=== PATIENT | female | born 1960 | race Caucasian/White ===

== ENCOUNTER 2018-06-22 14:51 | Outpatient (CLI) | payer OTHER ==
--- NOTE | 2018-06-22 16:40 | MRI ---
MRI OF THE LUMBAR SPINE WITHOUT CONTRAST: 06/22/18 HISTORY: Leg weakness. Low back pain. Previous history of three ruptured discs. COMPARISON: None. TECHNIQUE: MRI of the lumbar spine is performed without intravenous gadolinium administration. Multisequential, multiplanar imaging is performed. FINDINGS: There is appropriate T1 narrow signal intensity of the lumbar vertebrae. Vertebral body height is ai ntained. No fracture. 2.3 mm of retrolisthesis of L2 upon L3. There is intrinsic T1 hyperintensity a nd T2 hyperintensity at L1 compatible with a small hemangioma. No significant STIR hyperintensity to suggest vertebral body edema or ligamentous injury. There is minimal type I Modic change at L2-3. T2 hyperintensities in the right kidney and right hepatic lobe likely representing cystic components. The conus medullaris terminates at the inferior aspect of L1. T12-L1: Small left paracentral disc bulge. No significant central canal stenosis. Patent bilateral ne ural foramina. L1-L2: Mild loss of disc space height. Minimal left and right paracentral disc bulges. No significant central canal stenosis. Mild bilateral neural foraminal narrowing. L2-L3: Desiccation with moderate loss of disc space height. Generalized disc bulge results in mild ce ntral canal stenosis. There is fluid in both facet joints. Moderate bilateral neural foraminal narrow ing. L3-L4: Mild loss of disc space height. No significant posterior disc abnormality. No significant cent ral canal stenosis. Mild bilateral foraminal narrowing. L4-L5: Adequate disc hydration. No significant central canal stenosis. There is bilateral facet hypertrophy with small amount of fluid in both facet joints. L5-S1: Mild bilateral foraminal narrowing at L5-S1. Adequate disc hydration. No significant central c anal stenosis. Neural foramina are patent. IMPRESSION: Degenerative changes lumbar spine as above. POS: [facility]
== END 2018-06-22 14:52 | disposition home or self-care (01) ==
LOC: TBSIIMAG 14:51
PROVIDERS: ATTEND Internal Medicine Rheumatology
DX: M47.896 Other spondylosis, lumbar region (principal)
CPT/HCPCS: 72148

== ENCOUNTER 2018-07-19 13:11 | Outpatient (CLI) | payer OTHER ==
[2018-07-19 15:15] LABS: Bilirubin Negative (Negative); Blood, Urine Negative (Negative); Clarity CLOUDY (Clear); Glucose, Urine (Dipstick) Negative (Negative); Leukocyte Trace (Negative); Nitrite Negative (Negative); Protein, Urine (Dipstick) Negative (Neg-Trace); Specific Gravity, Urine 1.023 (1.002-1.036); Urobilinogen 0.2 mg/dL (0.2-1.0)
[2018-07-19 15:19] LABS: Bacteria/HPF None Seen HPF (None Seen); Hyaline Casts/LPF 0-3 HYALINE CAST LPF (0-3 Hyaline); Pathc Cast-AUWi Flag 0.72 (0-2.49); RBC/HPF 0-3 HPF (0-3); WBC/HPF 0-3 HPF (0-3)
== END 2018-07-19 13:12 | disposition home or self-care (01) ==
LOC: LABBT 13:11
PROVIDERS: ATTEND Orthopaedic Surgery
DX: Z01.818 Encounter for other preprocedural examination (principal); M16.11 Unilateral primary osteoarthritis, right hip
CPT/HCPCS: 81001; 87081; 93005; 93010

== ENCOUNTER 2018-07-19 13:15 | Inpatient (IN) | payer OTHER ==
[2018-07-19 13:34] VITALS: BMI 44.2
[2018-07-31] MEDS ORDERED: Vancomycin HCl 1.5 GM in Sodium Chloride 0.9% 250 ML 300 ML IVPB SCH (07:00)
[2018-07-31] MEDS ORDERED: HYDROcodone/Acetaminophen 10/325 mg Tablet PO PRN ×2 (07:02)
[2018-07-31] MEDS ORDERED: Promethazine HCl 25 MG/ML VIAL IM PRN ×4 (07:02→10:33)
[2018-07-31] MEDS ORDERED: traMADol HCl 50 MG TAB PO PRN ×3 (07:02→08:45)
[2018-07-31] MEDS ORDERED: Ondansetron HCl/PF 4 MG/2 ML Vial IVP PRN ×4 (07:02→10:33)
[2018-07-31] MEDS ORDERED: Fentanyl 100 MCG/2 ML VIAL SLOW IVP PRN ×2 (07:02)
[2018-07-31] MEDS ORDERED: Zolpidem Tartrate 5 MG TAB PO PRN ×3 (07:02→10:32)
[2018-07-31] MEDS ORDERED: Acetaminophen 325 MG TAB PO PRN (07:02)
[2018-07-31] MEDS ORDERED: diphenhydrAMINE 25 MG CAP PO PRN ×2 (07:02→10:32)
--- NOTE | 2018-07-31 07:41 | RAD ---
CHEST 1 VIEW: Date: 07/31/18 HISTORY: 58-year-old female with history of preoperative evaluation. FINDINGS: Heart size is normal. The lungs are clear. No pneumonia, edema, pleural effusion, or other acute proc ess. IMPRESSION: No acute intrathoracic disease. POS: [facility]
[2018-07-31] MEDS ORDERED: Sodium Chloride 0.9% 100 ML ONE (07:51)
[2018-07-31] MEDS ORDERED: CEFAZOLIN/Water 2 GM/20 ML SYRINGE ONE (07:51)
[2018-07-31] MEDS ORDERED: Fentanyl 100 MCG/2 ML VIAL ONE ×4 (08:03→11:15)
[2018-07-31] MEDS ORDERED: Midazolam HCl 2 mg/2 ml Vial ONE (08:03)
[2018-07-31] MEDS ORDERED: Bupivacaine 0.25% HCL 30 ML VIAL ONE ×2 (08:37→10:49)
[2018-07-31] MEDS ORDERED: HYDROcodone/Acetaminophen 5/325 mg Tablet PO PRN ×2 (08:45)
[2018-07-31] MEDS ORDERED: Promethazine HCl 25 MG SUPP PR PRN ×2 (08:45→10:32)
[2018-07-31] MEDS ORDERED: Bupivacaine 0.25% 10 ML VIAL EPIDURAL PRN ×2 (08:45→10:32)
[2018-07-31] MEDS ORDERED: Hydrocerin (Eucerin) Cream 120 gm Jar TOP PRN (08:45)
[2018-07-31] MEDS ORDERED: Naloxone HCl 0.4 mg/ml Vial IV PRN (08:45)
[2018-07-31] MEDS ORDERED: Naloxone HCl 0.4 mg/ml Vial IVP PRN ×3 (08:45→10:32)
[2018-07-31] MEDS ORDERED: diphenhydrAMINE 50 MG/ML VIAL IVP PRN ×2 (08:45→10:32)
[2018-07-31] MEDS ORDERED: diphenhydrAMINE 50 MG/ML VIAL IM PRN ×2 (08:45→10:32)
[2018-07-31] MEDS ORDERED: Eucerin (Mineral Oil/Petrolatum,White) 30 gm Jar TOP PRN (10:32)
[2018-07-31] MEDS ORDERED: Promethazine HCl 25 MG/ML VIAL SLOW IVP PRN (10:33)
[2018-07-31] MEDS ORDERED: HYDROmorphone 2 MG/ML VIAL SLOW IVP PRN (10:33)
[2018-07-31] MEDS ORDERED: fentaNYL Citrate/PF 1,250 MCG, Bupivacaine 25 ML in Sodium Chloride 0.9% 250 ML 200 ML EPIDURAL SCH (10:45)
[2018-07-31] MEDS ORDERED: Communication Order-Pharmacy FS SCH ×2 (10:45)
[2018-07-31] MEDS ORDERED: Fentanyl/Bupivacaine 100 ML EPIDURAL ONE (11:04)
--- NOTE | 2018-07-31 11:27 | OP ---
DATE OF PROCEDURE: 07/31/2018 PREOPERATIVE DIAGNOSIS: Degenerative joint disease, right hip. POSTOPERATIVE DIAGNOSIS: Degenerative joint disease, right hip. SURGEON: Stephane Nagel M.D. TOWER CLIMBER: Favio Whitlock PA-C. BLOOD LOSS: 150 mL. SPECIMEN: None. DRAINS: None. COMPLICATIONS: None. IMPLANTS USED: Johanna Accolade #2.5 stem with a standard ceramic head, a PSL cup size 50 with a X3 liner. PROCEDURE IN DETAIL: After informed consent was obtained in the preoperative holding area, the patie nt was taken to the operative suite where general anesthesia was induced. The patient was then posit ioned in the lateral decubitus position. The hip was then prepped and draped in usual sterile fashio n. The patient received preoperative antibiotics. Prior to incision, time-out was called and all me mbers of the surgical team agreed upon site, surgeon, and patient. After this, a longitudinal incisi on was made directly over the trochanter, noted by palpation extending 2 fingerbreadths above and bel ow the trochanter. The deeper subcutaneous layer was undermined with Bovie electrocautery. The ilio tibial band was encountered and incised sharply and the plane below this was developed bluntly. [facility] to hold this opened. The lateral aspect of the trochanter and the abduct or muscles were encountered and then reflected anteriorly off the trochanter using Bovie electrocaute ry. Once this was completed, the anterior capsule was then encountered and identified and copious ca psulotomy was carried out, exposing the femoral neck and head. Dislocation maneuver was then performe d and an in situ provisional neck cut was then made using the oscillating saw. Attention was then tu rned to acetabular preparation and sequential reaming was carried out up to the appropriate diameter and a trial was then malleted into place with good firm resistance and no pullout. The permanent gianluca tabular shell was then malleted squarely into place, as was the appropriate liner. Once completed, t he wound was copiously irrigated and attention was then turned to femoral preparation. Flexion and ex ternal rotation was performed of the exposed thigh and femoral elevators were then placed at the prox imal aspect of the wound. Canal finder was used to establish the length of the canal and sequential reaming was carried out, followed by broaching. Once the appropriate stability was established with the trial broaches with both flexion, extension and rotational stability, we did trial with neutral a nd 2 mm offset incremental necks. Once the appropriate size was decided upon, with good stability no dalton with flexion, extension, internal and external rotation and shuck being negative, we removed the femoral trial broach and malletted into place the permanent prosthesis with good firm fit, which was also stable to rotation. Again, the hip felt very stable to flexion, extension, internal and externa l rotation. Leg lengths appeared near anatomic clinically and we were quite happy with prosthesis pl acement. Copious irrigation was then carried out through the entirety of the wound. Primary closure of the abductors was accomplished with interrupted #2 Vicryl [id number] stitches and the IT ban d was then closed with interrupted #2 Vicryl, oversewn with a #2 running barbed Quill stitch. Subcut aneous fascia was closed with running barbed Quill stitch and a subcuticular Monocryl barbed Quill st itch was used for skin closure and augmented with skin cement. A sterile dressing was applied. The p rocedure was terminated without any complication. All counts were correct. The patient was awakened in the operative suite and taken to the recovery room in stable condition.
[2018-07-31] MEDS: diphenhydrAMINE 25 MG CAP PO PRN ×3 (12:45→21:18)
[2018-07-31] MEDS: Sodium Chloride 0.9% 1,000 ML IV SCH ×2 (12:46→18:37)
[2018-07-31] MEDS ORDERED: Succinylcholine Chloride 20 MG/ML 10 ml SYRINGE FS ONE (12:52)
[2018-07-31] MEDS ORDERED: PROPOFOL 200 MG/20 ML VIAL ONE (12:52)
[2018-07-31] MEDS ORDERED: Glycopyrrolate 0.2 MG/ML 5 ML SYRINGE ONE (12:52)
[2018-07-31] MEDS ORDERED: Lidocaine 1% PF 5 ML VIAL ONE (12:52)
[2018-07-31] MEDS ORDERED: Dexamethasone 20 MG/5 ML VIAL ONE (12:52)
[2018-07-31] MEDS ORDERED: Ondansetron HCl/PF 4 MG/2 ML Vial ONE (12:52)
--- NOTE | 2018-07-31 13:17 | RAD ---
TWO VIEWS RIGHT HIP: History: Right hip pain. Post-operative exam. FINDINGS: AP and lateral views of the right hip obtained. There is a right hip arthroplasty. Femoral and acetabular components are in good position. No evidenc e of fractures or loosening seen. IMPRESSION: Status post right hip arthroplasty. POS: [facility]
[2018-07-31] MEDS: Ketorolac Tromethamine 30 MG/ML VIAL IVP PRN (14:47)
[2018-07-31] MEDS: Ferrous Gluconate 324 MG TAB PO SCH ×2 (14:52→21:14)
[2018-07-31] MEDS: CeleCOXIB 100 MG CAP PO SCH ×2 (14:52→21:14)
[2018-07-31] MEDS: DULoxetine 60 MG CAP PO SCH (14:57)
[2018-07-31] MEDS: Atorvastatin Calcium 40 MG TAB PO SCH (14:57)
[2018-07-31] MEDS: Hydrochlorothiazide 25 MG TAB PO SCH (14:57)
[2018-07-31] MEDS: Aspirin 81 mg Enteric Coated Tablet PO SCH ×2 (14:57→21:15)
[2018-07-31] MEDS: Acetaminophen ER (8hr) 650 MG TAB PO SCH (14:58)
[2018-07-31] MEDS: Metoprolol Tartrate 25 MG TAB PO SCH ×2 (14:58→21:15)
[2018-07-31] MEDS: Multivitamin W/ Minerals 1 TAB PO SCH (14:59)
[2018-07-31] MEDS: Senokot S 8.6-50 MG TAB PO SCH ×2 (14:59→21:14)
[2018-07-31] MEDS: CEFAZOLIN/Water 2 GM/20 ML SYRINGE SLOW IVP SCH (16:09)
--- NOTE | 2018-07-31 19:27 | PDOC.PN ---
- Subjective Encounter Start Date: 07/31/18 Encounter Start Time: 13:00 Patient seen and examined for med mngt. No CP/SOB/Palpitations. No new complaints. - Objective MAR Reviewed: Yes Vital Signs & Weight: Vital Signs (12 hours) Temp Pulse Resp BP BP Pulse Ox 07/31/18 16:00 95 07/31/18 14:44 128/66 07/31/18 12:15 97.4 F L 75 16 113/62 97 Weight Weight 250 lb I&O: 07/30/18 07/31/18 08/01/18 06:59 06:59 06:59 Intake Total 1560 Output Total 350 Balance 1210 EKG Reviewed by me: Yes (SR) Phys Exam - Physical Examination Constitutional: NAD Respiratory: no wheezing, no rhonchi Cardiovascular: RRR, no rub Gastrointestinal: soft, non-tender, positive bowel sounds Musculoskeletal: no edema Neurological: moves all 4 limbs Dx/Plan - Plan DVT proph w/SCDs IMPRESSION/PLAN: 1. HTN Cont Lopressor/HCTZ 2. HLD Cont Statin 3. Morbid Obesity BMI 44 4. Anxiety/Depression Cont Cymbalta 5. Impaired glucose tolerance - A1c 6.2 6. GERD Cont PPI Thank you for this consultation. Will follow. Review of Systems - Review of Systems Respiratory: negative: Cough, Dry, Shortness of Breath, Hemoptysis, SOB with Excertion, Pleuritic Pain, Sputum, Wheezing Cardiovascular: negative: chest pain, palpitations, orthopnea, paroxysmal nocturnal dyspnea, edema, light headedness, other - Medications/Allergies Allergies/Adverse Reactions: Allergies Allergy/AdvReac Type Severity Reaction Status Date / Time No Known Allergies Allergy Verified 07/19/18 13:34 Medications: Current Medications Acetaminophen (Tylenol) 650 mg PO Q4H PRN PRN Reason: MARTIN/ T > 101F; Mild Pain (1-3) Acetaminophen (Tylenol Er (8hr Arthritis Pain)) 1,300 mg PO DAILY [facility] Last Admin: 07/31/18 14:58 Dose: Not Given Hydrocodone Bitart/Acetaminophen ([place] 5/325) 1 tab PO Q4H PRN PRN Reason: Mild Pain 0-3 Hydrocodone Bitart/Acetaminophen ([place] 5/325) 2 tab PO Q4H PRN PRN Reason: For Moderate Pain 4-6 Aspirin (Ecotrin) 81 mg PO BID [facility] Last Admin: 07/31/18 14:57 Dose: 81 mg Atorvastatin Calcium (Lipitor) 40 mg PO QAM [facility] Last Admin: 07/31/18 14:57 Dose: 40 mg Bupivacaine HCl (Marcaine) 5 ml EPIDURAL ONE PRN PRN Reason: Uncontrolled Pain Stop: 08/01/18 10:33 Cefazolin Sodium (Ancef) 2 gm SLOW IVP 1500,2300 [facility] Stop: 07/31/18 23:01 Last Admin: 07/31/18 16:09 Dose: 2 gm Celecoxib (Celebrex) 200 mg PO BID [facility] Last Admin: 07/31/18 14:52 Dose: Not Given Diphenhydramine HCl (Benadryl) 25 mg PO Q3H PRN PRN Reason: Itching Last Admin: 07/31/18 16:06 Dose: 25 mg Diphenhydramine HCl (Benadryl) 25 mg IM Q3H PRN PRN Reason: Itching Diphenhydramine HCl (Benadryl) 25 mg IVP Q3H PRN PRN Reason: Itching Diphenhydramine HCl (Benadryl) 25 mg IVP Q3H PRN PRN Reason: Itching Diphenhydramine HCl (Benadryl) 25 mg PO Q3H PRN PRN Reason: Itching Diphenhydramine HCl (Benadryl) 25 mg IM Q3H PRN PRN Reason: Itching Duloxetine [facility] (Cymbalta) [facility] [place] [place] Last Admin: 07/31/18 14:57 Dose: Not Given Emollient Cream (Hydrocerin Cream) 0 gm TOP PRN PRN PRN Reason: Itching Ferrous Gluconate (Fergon) 324 mg PO BID [facility] Last Admin: 07/31/18 14:52 Dose: Not Given Hydrochlorothiazide (Hydrochlorothiazide) [facility] [place] [place] Last Admin: 07/31/18 14:57 Dose: Not Given Sodium Chloride (Normal Saline 0.9%) 1,000 mls @ 100 mls/hr IV .Q10H [facility] Last Admin: 07/31/18 18:37 Dose: Not Given Fentanyl Citrate (Fentanyl/Bupivacaine) 100 mls @ 0 mls/hr EPIDURAL INF [facility] Iron/Minerals/Multivitamins (Theragran M) 1 tab PO DAILY [facility] Last Admin: 07/31/18 14:59 Dose: Not Given Ketorolac Tromethamine (Toradol) 30 mg IVP Q6H PRN PRN Reason: Moderate Pain (4-6) Stop: 08/03/18 08:46 Last Admin: 07/31/18 14:47 Dose: 30 mg Metoprolol Tartrate (Lopressor) 25 mg PO BID [facility] Last Admin: 07/31/18 14:58 Dose: Not Given Mineral Oil/White Petrolatum (Eucerin Cream) 0 gm TOP PRN PRN PRN Reason: Itching Miscellaneous Information (Communication Order-Pharmacy) 1 each FS ASDIR [facility] Miscellaneous Information (Communication Order-Pharmacy) 1 each FS ONE [facility] Stop: 08/01/18 10:46 Naloxone HCl (Narcan) 0.2 mg IV Q5MIN PRN PRN Reason: RR <=8 OR OBTUNDED/UNAROUSABLE Naloxone HCl (Narcan) 0.1 mg IVP Q15MIN PRN PRN Reason: URINARY RETENTION Naloxone HCl (Narcan) 0.2 mg IVP Q5MIN PRN PRN Reason: Opiate Reversal Naloxone HCl (Narcan) 0.1 mg IVP Q15MIN PRN PRN Reason: Urinary retention Ondansetron HCl (Zofran) 4 mg IVP Q6H PRN PRN Reason: Nausea/Vomiting Ondansetron HCl (Zofran) 4 mg IVP Q6H PRN PRN Reason: Nausea/Vomiting Pantoprazole Sodium (Protonix) 40 mg PO QAM [facility] Last Admin: 07/31/18 14:58 Dose: Not Given Promethazine HCl (Phenergan) 12.5 mg IM Q4H PRN PRN Reason: Nausea Promethazine HCl (Phenergan Suppository) 25 mg IN Q4H PRN PRN Reason: Nausea/Vomiting Promethazine HCl (Phenergan) 12.5 mg IM Q4H PRN PRN Reason: Nausea/Vomiting Promethazine HCl (Phenergan Suppository) 25 mg IN Q4H PRN PRN Reason: Nausea/Vomiting Senna/Docusate Sodium (Senokot S) 2 tab PO BID [facility] Last Admin: 07/31/18 14:59 Dose: Not Given Sodium Chloride (Flush - Normal Saline) 10 ml IVF PRN PRN PRN Reason: Saline Flush Tramadol HCl (Ultram) 50 mg PO Q6H PRN PRN Reason: Mild Pain 1-3 Tramadol HCl (Ultram) 100 mg PO Q6H PRN PRN Reason: Moderate Pain 4-6 Zolpidem Tartrate (Ambien) 5 mg PO HSPRN PRN PRN Reason: Insomnia Zolpidem Tartrate (Ambien) 5 mg PO HSPRN PRN PRN Reason: Insomnia
[2018-08-01] MEDS: CEFAZOLIN/Water 2 GM/20 ML SYRINGE SLOW IVP SCH (00:29)
[2018-08-01] MEDS: diphenhydrAMINE 25 MG CAP PO PRN ×4 (00:32→20:11)
[2018-08-01] MEDS: Sodium Chloride 0.9% 1,000 ML IV SCH ×3 (00:36→23:53)
[2018-08-01] MEDS: Fentanyl/Bupivacaine 100 ML EPIDURAL SCH ×2 (03:09→18:39)
[2018-08-01 06:23] LABS: Hemoglobin 11.2 g/dL (12.0-16.0); Mean Corpuscular HGB CONC 32.4 g/dL (32.0-36.0); Mean Corpuscular Hemoglobin 30.3 pg (27.0-31.0); Mean Corpuscular Volume 93.6 fL (78.0-98.0); Mean Platelet Volume 7.6 fL (7.4-10.4); Platelet Count 261 thou/uL (130-400); RBC Distribution Width 11.8 % (11.5-14.5); Red Blood Cell (RBC) Count 3.71 mill/uL (4.20-5.40); White Blood Cell (WBC) Count 9.1 thou/uL (4.8-10.8)
[2018-08-01 06:48] LABS: Anion Gap 11 mmol/L (10-20); BUN (Urea Nitrogen) 11 mg/dL (9.8-20.1); Calc. Creatinine Clearance 159 mL/min (70-130); Calcium 7.9 mg/dL (7.8-10.44); Carbon Dioxide 26 mmol/L (22-29); Chloride 102 mmol/L (98-107); Estimated GFR-MDRD 87; Glucose 181 mg/dL (70-105); Magnesium 1.7 mg/dL (1.6-2.6); Potassium 3.6 mmol/L (3.5-5.1); Sodium 135 mmol/L (136-145)
[2018-08-01] MEDS: CeleCOXIB 100 MG CAP PO SCH ×2 (08:50→20:07)
[2018-08-01] MEDS: Hydrochlorothiazide 25 MG TAB PO SCH (08:50)
[2018-08-01] MEDS: Ferrous Gluconate 324 MG TAB PO SCH ×2 (08:50→20:07)
[2018-08-01] MEDS: Atorvastatin Calcium 40 MG TAB PO SCH (08:50)
[2018-08-01] MEDS: DULoxetine 60 MG CAP PO SCH (08:50)
[2018-08-01] MEDS: Metoprolol Tartrate 25 MG TAB PO SCH ×2 (08:51→20:07)
[2018-08-01] MEDS: Aspirin 81 mg Enteric Coated Tablet PO SCH ×2 (08:51→20:06)
[2018-08-01] MEDS: Multivitamin W/ Minerals 1 TAB PO SCH (08:51)
[2018-08-01] MEDS: Polyethylene Glycol 3350 17 GM Packet PO SCH (08:51)
[2018-08-01] MEDS: Senokot S 8.6-50 MG TAB PO SCH ×2 (08:51→20:06)
[2018-08-01] MEDS: Ketorolac Tromethamine 30 MG/ML VIAL IVP PRN ×2 (08:56→15:51)
[2018-08-01] MEDS: Acetaminophen ER (8hr) 650 MG TAB PO SCH (10:49)
--- NOTE | 2018-08-01 19:57 | PDOC.PN ---
- Subjective Encounter Start Date: 08/01/18 Encounter Start Time: 10:30 Patient seen and examined for med mgnt. No new complaints. No overnight events - Objective MAR Reviewed: Yes Vital Signs & Weight: Vital Signs (12 hours) Temp Pulse Resp BP Pulse Ox Pulse Ox 08/01/18 16:24 98.5 F 78 15 114/68 92 L 08/01/18 11:55 98.8 F 83 16 96/62 93 L 08/01/18 08:15 93 L 08/01/18 08:02 99.2 F 89 14 110/63 94 L Weight Admit Weight 250 lb Weight 250 lb I&O: 07/31/18 08/01/18 08/02/18 06:59 06:59 06:59 Intake Total 3260 1600 Output Total 1075 1250 Balance 2185 350 Result Diagrams: 08/01/18 05:44 08/01/18 05:44 EKG Reviewed by me: Yes Phys Exam - Physical Examination Constitutional: NAD Respiratory: no wheezing, no rhonchi Cardiovascular: RRR, no rub Gastrointestinal: soft, non-tender, positive bowel sounds Musculoskeletal: no edema Neurological: moves all 4 limbs Dx/Plan - Plan DVT proph w/SCDs IMPRESSION/PLAN: 1. HTN Cont Lopressor/HCTZ 2. Anxiety/Depression Cont Cymbalta 3. Morbid Obesity BMI 44 4. HLD Cont Statin 5. Impaired glucose tolerance - A1c 6.2 6. GERD Cont PPI Review of Systems - Review of Systems Respiratory: negative: Cough, Dry, Shortness of Breath, Hemoptysis, SOB with Excertion, Pleuritic Pain, Sputum, Wheezing Cardiovascular: negative: chest pain, palpitations, orthopnea, paroxysmal nocturnal dyspnea, edema, light headedness, other - Medications/Allergies Allergies/Adverse Reactions: Allergies Allergy/AdvReac Type Severity Reaction Status Date / Time No Known Allergies Allergy Verified 07/19/18 13:34 Medications: Current Medications Acetaminophen (Tylenol) 650 mg PO Q4H PRN PRN Reason: MARTIN/ T > 101F; Mild Pain (1-3) Acetaminophen (Tylenol Er (8hr Arthritis Pain)) 1,300 mg PO DAILY [facility] Last Admin: 08/01/18 10:49 Dose: Not Given Hydrocodone Bitart/Acetaminophen ([place] 5/325) 1 tab PO Q4H PRN PRN Reason: Mild Pain 0-3 Hydrocodone Bitart/Acetaminophen ([place] 5/325) 2 tab PO Q4H PRN PRN Reason: For Moderate Pain 4-6 Aspirin (Ecotrin) 81 mg PO BID [facility] Last Admin: 08/01/18 08:51 Dose: 81 mg Atorvastatin Calcium (Lipitor) 40 mg PO QAM [facility] Last Admin: 08/01/18 08:50 Dose: 40 mg Celecoxib (Celebrex) 200 mg PO BID [facility] Last Admin: 08/01/18 08:50 Dose: 200 mg Diphenhydramine HCl (Benadryl) 25 mg PO Q3H PRN PRN Reason: Itching Last Admin: 08/01/18 08:56 Dose: 25 mg Diphenhydramine HCl (Benadryl) 25 mg IM Q3H PRN PRN Reason: Itching Diphenhydramine HCl (Benadryl) 25 mg IVP Q3H PRN PRN Reason: Itching Diphenhydramine HCl (Benadryl) 25 mg IVP Q3H PRN PRN Reason: Itching Diphenhydramine HCl (Benadryl) 25 mg PO Q3H PRN PRN Reason: Itching Diphenhydramine HCl (Benadryl) 25 mg IM Q3H PRN PRN Reason: Itching Duloxetine HCl (Cymbalta) [address] [facility] Last Admin: 08/01/18 08:50 Dose: 60 mg Emollient Cream (Hydrocerin Cream) 0 gm TOP PRN PRN PRN Reason: Itching Ferrous Gluconate (Fergon) 324 mg PO BID [facility] Last Admin: 08/01/18 08:50 Dose: 324 mg Hydrochlorothiazide (Hydrochlorothiazide) [facility] [place] Last Admin: 08/01/18 08:50 Dose: 25 mg Sodium Chloride (Normal Saline 0.9%) 1,000 mls @ 100 mls/hr IV .Q10H [facility] Last Admin: 08/01/18 12:42 Dose: Not Given Fentanyl Citrate (Fentanyl/Bupivacaine) 100 mls @ 0 mls/hr EPIDURAL INF [facility] Last Admin: 08/01/18 18:39 Dose: 100 mls Iron/Minerals/Multivitamins (Theragran M) 1 tab PO DAILY [facility] Last Admin: 08/01/18 08:51 Dose: 1 tab Ketorolac Tromethamine (Toradol) 30 mg IVP Q6H PRN PRN Reason: Moderate Pain (4-6) Stop: 08/03/18 08:46 Last Admin: 08/01/18 15:51 Dose: 30 mg Metoprolol Tartrate (Lopressor) 25 mg PO BID [facility] Last Admin: 08/01/18 08:51 Dose: 25 mg Mineral Oil/White Petrolatum (Eucerin Cream) 0 gm TOP PRN PRN PRN Reason: Itching Miscellaneous Information (Communication Order-Pharmacy) 1 each FS ASDIR [facility] Naloxone HCl (Narcan) 0.2 mg IV Q5MIN PRN PRN Reason: RR <=8 OR OBTUNDED/UNAROUSABLE Naloxone HCl (Narcan) 0.1 mg IVP Q15MIN PRN PRN Reason: URINARY RETENTION Naloxone HCl (Narcan) 0.2 mg IVP Q5MIN PRN PRN Reason: Opiate Reversal Naloxone HCl (Narcan) 0.1 mg IVP Q15MIN PRN PRN Reason: Urinary retention Ondansetron HCl (Zofran) 4 mg IVP Q6H PRN PRN Reason: Nausea/Vomiting Ondansetron HCl (Zofran) 4 mg IVP Q6H PRN PRN Reason: Nausea/Vomiting Pantoprazole Sodium (Protonix) 40 mg PO QAM [facility] Last Admin: 08/01/18 08:51 Dose: 40 mg Polyethylene Glycol (Miralax) 17 gm PO DAILY [facility] Last Admin: 08/01/18 08:51 Dose: 17 gm Promethazine HCl (Phenergan) 12.5 mg IM Q4H PRN PRN Reason: Nausea Promethazine HCl (Phenergan Suppository) 25 mg NM Q4H PRN PRN Reason: Nausea/Vomiting Promethazine HCl (Phenergan) 12.5 mg IM Q4H PRN PRN Reason: Nausea/Vomiting Promethazine HCl (Phenergan Suppository) 25 mg NM Q4H PRN PRN Reason: Nausea/Vomiting Senna/Docusate Sodium (Senokot S) 2 tab PO BID [facility] Last Admin: 08/01/18 08:51 Dose: 2 tab Sodium Chloride (Flush - Normal Saline) 10 ml IVF PRN PRN PRN Reason: Saline Flush Last Admin: 08/01/18 15:52 Dose: 10 ml Tramadol HCl (Ultram) 50 mg PO Q6H PRN PRN Reason: Mild Pain 1-3 Tramadol HCl (Ultram) 100 mg PO Q6H PRN PRN Reason: Moderate Pain 4-6 Zolpidem Tartrate (Ambien) 5 mg PO HSPRN PRN PRN Reason: Insomnia Zolpidem Tartrate (Ambien) 5 mg PO HSPRN PRN PRN Reason: Insomnia
[2018-08-02] MEDS: diphenhydrAMINE 25 MG CAP PO PRN (05:42)
[2018-08-02 06:09] LABS: Hemoglobin 11.2 g/dL (12.0-16.0); Mean Corpuscular HGB CONC 32.2 g/dL (32.0-36.0); Mean Corpuscular Hemoglobin 30.3 pg (27.0-31.0); Mean Corpuscular Volume 94.1 fL (78.0-98.0); Mean Platelet Volume 7.4 fL (7.4-10.4); Platelet Count 246 thou/uL (130-400); RBC Distribution Width 12.1 % (11.5-14.5); White Blood Cell (WBC) Count 9.5 thou/uL (4.8-10.8)
[2018-08-02] MEDS: DULoxetine 60 MG CAP PO SCH (08:45)
[2018-08-02] MEDS: Senokot S 8.6-50 MG TAB PO SCH (08:45)
[2018-08-02] MEDS: CeleCOXIB 100 MG CAP PO SCH (08:45)
[2018-08-02] MEDS: Ferrous Gluconate 324 MG TAB PO SCH (08:46)
[2018-08-02] MEDS: Aspirin 81 mg Enteric Coated Tablet PO SCH (08:46)
[2018-08-02] MEDS: Hydrochlorothiazide 25 MG TAB PO SCH (08:46)
[2018-08-02] MEDS: Atorvastatin Calcium 40 MG TAB PO SCH (08:46)
[2018-08-02] MEDS: Metoprolol Tartrate 25 MG TAB PO SCH (08:47)
[2018-08-02] MEDS: Multivitamin W/ Minerals 1 TAB PO SCH (08:47)
[2018-08-02] MEDS: Sodium Chloride 0.9% 1,000 ML IV SCH (08:53)
[2018-08-02] MEDS: Polyethylene Glycol 3350 17 GM Packet PO SCH (08:53)
[2018-08-02] MEDS: Acetaminophen ER (8hr) 650 MG TAB PO SCH (09:54)
[2018-08-02 10:47] VITALS: BP 140/65; TEMP 98.5
== END 2018-08-02 15:48 | disposition home or self-care (01) | DRG 470 ==
LOC: SJJU 07-31 06:23
PROVIDERS: ADMIT Orthopaedic Surgery; ATTEND Orthopaedic Surgery
PROC: 0SR904A Replacement of Right Hip Joint with Ceramic on Polyethylene Synthetic Substitute, Uncemented, Open Approach (ICD-10-PCS; principal; 2018-07-31)
DX: M16.11 Unilateral primary osteoarthritis, right hip (principal); Z68.41 Body mass index [BMI] 40.0-44.9, adult; I10 Essential (primary) hypertension; F41.9 Anxiety disorder, unspecified; F32.9 Major depressive disorder, single episode, unspecified; E66.01 Morbid (severe) obesity due to excess calories; K21.9 Gastro-esophageal reflux disease without esophagitis; R73.02 Impaired glucose tolerance (oral)
CPT/HCPCS: 36415; 71045; 80048; 83735; 85027; G8978-GP-CJ; G8979-GP-CI; G8987-GO-CJ; G8988-GO-CI; J1100; J1885; J2001; J2250; J2405; J2704; J3010; J3370; J3490; J7050; S0020

== ENCOUNTER 2018-07-24 12:12 | Outpatient (CLI) | payer OTHER | END 2018-07-24 12:13 | disposition home or self-care (01) | LOC: BICMAMMO 12:12 | PROVIDERS: ATTEND Internal Medicine | DX: Z12.31 Encounter for screening mammogram for malignant neoplasm of breast (principal); R92.1 Mammographic calcification found on diagnostic imaging of breast | CPT/HCPCS: 77063; 77067 ==

== ENCOUNTER 2018-07-25 12:08 | Outpatient (CLI) | payer OTHER ==
[2018-07-25 12:49] LABS: #Eosinphils 0.3 thou/uL (0.0-0.7); #Monocytes 0.3 thou/uL (0.11-0.59); #Neutrophils 3.9 thou/uL (1.40-6.50); %Basophils 0.6 % (0.0-1.0); %Eosinophils 3.7 % (0.0-10.0); %Lymphocytes 39.9 % (21.0-51.0); %Monocytes 4.4 % (0.0-10.0); %Neutrophils 51.4 % (42.0-75.0); Hemoglobin 15.2 g/dL (12.0-16.0); Mean Corpuscular HGB CONC 32.5 g/dL (32.0-36.0); Mean Corpuscular Hemoglobin 30.4 pg (27.0-31.0); Mean Corpuscular Volume 93.5 fL (78.0-98.0); Mean Platelet Volume 7.5 fL (7.4-10.4); Platelet Count 308 thou/uL (130-400); RBC Distribution Width 11.9 % (11.5-14.5); Red Blood Cell (RBC) Count 4.98 mill/uL (4.20-5.40); White Blood Cell (WBC) Count 7.6 thou/uL (4.8-10.8)
[2018-07-25 12:55] LABS: INR-International Normal Ratio 0.9; Prothrombin Time 12.6 SEC (12.0-14.7)
[2018-07-25 13:14] LABS: Anion Gap 10 mmol/L (10-20); BUN (Urea Nitrogen) 14 mg/dL (9.8-20.1); Calc. Creatinine Clearance 0 mL/min (70-130); Calcium 9.6 mg/dL (7.8-10.44); Carbon Dioxide 32 mmol/L (22-29); Chloride 101 mmol/L (98-107); Estimated GFR-MDRD 87; Glucose 118 mg/dL (70-105); Potassium 3.9 mmol/L (3.5-5.1); Sodium 139 mmol/L (136-145)
== END 2018-07-25 12:09 | disposition home or self-care (01) ==
LOC: LABBT 12:08
PROVIDERS: ATTEND Orthopaedic Surgery
DX: Z01.812 Encounter for preprocedural laboratory examination (principal); M16.11 Unilateral primary osteoarthritis, right hip
CPT/HCPCS: 80048; 85025; 85610; 86850; 86900; 86901

== ENCOUNTER 2018-09-13 08:20 | Outpatient (CLI) | payer OTHER ==
--- NOTE | 2018-09-13 09:45 | ULT ---
ULTRASOUND ABDOMEN COMPLETE HISTORY: Epigastric pain. TECHNIQUE: Buck-scale ultrasound evaluation of the liver, gallbladder, spleen, pancreas, common bile duct, kidne ys, abdominal aorta, and inferior vena cava (IVC). FINDINGS: There is increased echogenicity in the liver without a focal hepatic lesion visualized. No acute gal lbladder pathology. There are hypoechoic foci of each kidney indicating cyst formation. No overt hy dronephrosis of the kidneys. The common duct is normal in caliber. Soriano's sign is reported as neg ative. No ascites. The spleen is grossly unremarkable. The pancreas is partially obscured from vie w by bowel content limiting assessment. A cyst demonstrated within the central aspect of the liver o n preceding MRI is not reliably depicted on this exam. IMPRESSION: 1. Bilateral renal cysts. 2. Increased echogenicity of the liver which may be related to fatty infiltration. Correlate with l iver function enzymes. POS: [facility]
== END 2018-09-13 08:21 | disposition home or self-care (01) ==
LOC: BICULT 08:20
PROVIDERS: ATTEND Internal Medicine Gastroenterology
DX: Z12.11 Encounter for screening for malignant neoplasm of colon (principal); R10.13 Epigastric pain; R11.0 Nausea; K21.9 Gastro-esophageal reflux disease without esophagitis; N28.1 Cyst of kidney, acquired; K76.9 Liver disease, unspecified; Z96.641 Presence of right artificial hip joint
CPT/HCPCS: 76700

== ENCOUNTER 2019-12-10 12:22 | Outpatient (CLI) | payer OTHER ==
--- NOTE | 2020-01-16 09:54 | MMO ---
Bilateral MAMMO Bilat Screen [id number]. CLINICAL HISTORY: Patient is 59 years old and is seen for screening. The patient has no family history of breast cancer. The patient has no personal history of cancer. The patient has a history of right needle biopsy more than 10 years ago - benign. VIEWS: The views performed were: bilateral craniocaudal; bilateral craniocaudal with tomosynthesis; bilateral mediolateral oblique; and bilateral mediolateral oblique with tomosynthesis. FILMS COMPARED: The present examination has been compared to prior imaging studies performed at [facility] on 11/14/2013 and 06/14/2016, and at [facility] on 07/24/2018. This study has been interpreted with the assistance of computer-aided detection. MAMMOGRAM FINDINGS: There are scattered fibroglandular densities. There are benign appearing calcifications seen in the left breast. There are no suspicious masses, suspicious calcifications, or new areas of architectural distortion. IMPRESSION: THERE IS NO MAMMOGRAPHIC EVIDENCE OF MALIGNANCY. A ROUTINE FOLLOW-UP MAMMOGRAM IN 1 YEAR IS RECOMMENDED. THE RESULTS OF THIS EXAM WERE SENT TO THE PATIENT. ACR BI-RADS Category 2 - Benign finding MAMMOGRAPHY NOTE: 1. A negative mammogram report should not delay a biopsy if a dominant of clinically suspicious mass is present. 2. Approximately 10% to 15% of breast cancers are not detected by mammography. 3. Adenosis and dense breasts may obscure an underlying neoplasm. Reported by: RAMU STONE MD Electonically Signed: [id number]
== END 2019-12-10 12:23 | disposition home or self-care (01) ==
LOC: BICMAMMO 12:22
PROVIDERS: ATTEND Internal Medicine
DX: Z12.31 Encounter for screening mammogram for malignant neoplasm of breast (principal); Z91.89 Other specified personal risk factors, not elsewhere classified
CPT/HCPCS: 77063; 77067

== ENCOUNTER 2020-03-24 13:00 | Outpatient (CLI) | payer OTHER | END 2020-03-24 13:01 | disposition home or self-care (01) | LOC: DTY/OP 13:00 | PROVIDERS: ATTEND Internal Medicine | DX: E66.01 Morbid (severe) obesity due to excess calories (principal); E11.69 Type 2 diabetes mellitus with other specified complication; G47.33 Obstructive sleep apnea (adult) (pediatric); K21.9 Gastro-esophageal reflux disease without esophagitis; I10 Essential (primary) hypertension; E78.5 Hyperlipidemia, unspecified | CPT/HCPCS: 97802 ==

== ENCOUNTER 2020-10-20 11:01 | Outpatient (CLI) | payer OTHER | END 2020-10-20 11:02 | disposition home or self-care (01) | LOC: DTY/OP 11:01 | PROVIDERS: ATTEND Surgery | DX: E66.01 Morbid (severe) obesity due to excess calories (principal) | CPT/HCPCS: 97802 ==